=== PATIENT | male | born 1995 | race Two or more races ===

== ENCOUNTER 2024-08-19 10:21 | Emergency (ER) | payer MEDICAID, SELFPAY ==
[2024-08-19 10:33] VITALS: BP 123/86; PULSE 82; RESP 16; TEMP 36.7; O2SAT 97; BMI 28.2
--- NOTE | 2024-08-19 10:42 | PD.EDPED ---
ED General RME/HPI General Chief complaint: Ear Stated complaint: Ear infection X 2 weeks Time Seen by Provider: 08/19/24 10:24 Arrival date/time: 08/19/24 10:21 29-year-old male presents to the emergency department today for complaint of 2-week history of right ear pain patient [place] any fever nausea vomiting no headache dizziness weakness patient reports he has seen his primary care doctor they put him on some eardrops but pain persists Limitations: no limitations Related Data Previous Rx's ?Medication ?Instructions ?Recorded amoxicillin 500 mg tablet 500 mg PO TID #30 tabs 09/16/18 ibuprofen 800 mg tablet 800 mg PO TID PRN pain #30 tabs 08/17/21 ibuprofen 600 mg tablet 600 mg PO TID PRN pain #30 tabs 12/26/21 amoxicillin 875 mg-potassium 1 tab PO BID 10 days #20 tabs 08/19/24 clavulanate 125 mg tablet ibuprofen 800 mg tablet 800 mg PO TID PRN pain #30 tabs 08/19/24 Allergies Allergy/AdvReac Type Severity Reaction Status Date / Time clams Allergy Severe Swelling Verified 08/19/24 10:25 of Lip/Tongue/Throat oyster extract Allergy Severe Swelling Verified 08/19/24 10:25 of Lip/Tongue/Throat shrimp Allergy Severe Swelling Verified 08/19/24 10:25 of Lip/Tongue/Throat Pediatric Review of Systems Systems Reviewed Systems Reviewed: All systems reviewed, normal except as documented Review of Systems Constitutional: Reports as per HPI; Denies fever Eyes: Reports as per HPI ENT: Reports as per HPI and ear pain Cardiovascular: Reports as per HPI Respiratory: Reports as per HPI; Denies cough, dyspnea or wheezing Gastrointestinal: Reports as per HPI; Denies abdominal pain, nausea or vomiting Integumentary: Reports as per HPI; Denies rash Past Medical History Past Medical History CARDIAC: Negative Congestive Heart Failure RESPIRATORY: Negative Chronic Obstructive Pulmonary Disease (COPD) GENITOURINARY: Negative Renal Disease ENDOCRINE: Negative Diabetes Mellitus Type 1 or Diabetes Mellitus Type 2 Social History SMOKING STATUS: Never smoker Ped Exam General Limitations: no limitations General appearance: well-appearing, well-hydrated and well-nourished Head Head exam: normocephalic, atruamatic and normal inspection Eye Eye exam: Present normal appearance, PERRL and EOMI ENT ENT exam: mucous membranes moist Expanded ENT Exam TM/Canal exam: Right TM: erythema, bulging and perforation Neck Neck exam: Present normal inspection, full ROM and trachea midline Chest Chest inspection: Present normal inspection and symmetric chest wall rise Respiratory Respiratory exam: Present normal lung sounds bilaterally Cardiovascular Cardiovascular exam: Present regular rate, normal rhythm and normal heart sounds Abdominal Exam Abdominal exam: Present soft and normal bowel sounds Extremities Exam Extremities exam: Present normal inspection, full ROM and normal capillary refill Back Exam Back exam: Present normal inspection and full ROM Neurological Exam Neurological exam: Present alert, oriented X3 and CN II-XII intact Skin Skin exam: Present warm, dry, intact and normal color Course Quality Measures none Vital Signs Vital signs: Vital Signs Temperature 98.1 F 08/19/24 10:33 Pulse Rate 82 08/19/24 10:33 Respiratory Rate 16 08/19/24 10:33 Blood Pressure 123/86 H 08/19/24 10:33 Pulse Oximetry (%) 97 08/19/24 10:33 Oxygen Delivery Method Room Air 08/19/24 10:33 O2 saturation 97% room air within normal limits Medical Decision Making MDM Narrative MDM Narrative: 29-year-old male presents to the emergency department today for complaint of 2-week history of right ear pain patient [place] any fever nausea vomiting no headache dizziness weakness patient reports he has seen his primary care doctor they put him on some eardrops but pain persists On exam patient appears of otitis media patient will be treated accordingly Patient discharged home in no distress to follow-up with primary care doctor in the next 24 to 48 hours and for any worsening symptoms to return to the ER immediately Differential Diagnosis Differential Diagnosis: Otitis media, otitis externa Medical Records Medical records reviewed: Yes I reviewed the patient's medical records. MDM (ped) Patient data External records reviewed:: [facility] previous records Clinical information provided by:: patient Social determinants that could affect healthcare access:: none Patient has the following chronic illnesses:: None How is presenting disease/condition affected by chronic disease/condition?: no chronic disease Evaluation data The following diagnostics were reviewed and interpreted by me:: other (specify) (N/A) Lab and/or radiology exams considered but not ordered:: Consider not ordered Interpretation Summary: N/A Medications Medications considered but not ordered:: Given Medication administrations:: Given Consultations Consultation(s) initiated? (list below): No Diagnosis Most likely diagnosis given after review of the tests above:: Otitis media Admission Indicated Admission indicated?: not indicated Explain why admission is indicated or not indicated:: No criteria Admission Request Was there a request for admission?: No Disposition Plan Disposition Plan: Discharge Discharge Attestation Discharge Attestation: The patient and all family members were given an opportunity to ask questions and understood the discharge instructions. Discharge instructions specifically effects, indications for sooner follow up or return to the emergency department, and the expected course of current diagnosis. Patient condition: Stable Discharge Plan Plan Patient Disposition: HOME (Self Care) Discharge Disposition comment: Stable Prescriptions/Referrals Prescriptions/Med Rec: New ibuprofen 800 mg tablet 800 mg PO TID PRN (Reason: pain) Qty: 30 0RF amoxicillin-pot clavulanate 875-125 mg tablet 1 tab PO BID 10 Days Qty: 20 0RF No Action amoxicillin 500 mg tablet 500 mg PO TID Qty: 30 0RF ibuprofen 800 mg tablet 800 mg PO TID PRN (Reason: pain) Qty: 30 0RF ibuprofen 600 mg tablet 600 mg PO TID PRN (Reason: pain) Qty: 30 0RF Problem List Clinical Impression: Acute otitis media, right Patient/Caregiver Discharge Instructions Education Materials: Anatomy of the Ear Additional Instructions: Please follow up with your primary care doctor in the next 24-48hrs for any worsening symptoms return here immediately Print Language: Cypriot Stand Alone Forms: Kianna Award Info., Patient Portal Info Letter PA/ASSET MANAGEMENT COORDINATOR Supervising Physician NICOLASA/TRACY Supervising Physician: Dr. colon
== END 2024-08-19 12:09 | disposition home or self-care (01) ==
LOC: SERX 11:11
PROVIDERS: Emergency Provider Emergency Medicine
DX: H66.91 Otitis media, unspecified, right ear (principal)
CPT/HCPCS: 99281